=== PATIENT | female | born 1965 | race Hispanic/Latino ===

== ENCOUNTER 2019-02-02 20:25 | Emergency (ER) | payer SELFPAY ==
[2019-02-02 20:43] LABS: Bilirubin Negative (Negative); Blood, Urine Trace (Negative); Clarity CLOUDY (Clear); Glucose, Urine (Dipstick) Negative (Negative); Leukocyte Large (Negative); Nitrite Negative (Negative); Protein, Urine (Dipstick) 300 mg/dL (Neg-Trace); Specific Gravity, Urine 1.018 (1.002-1.036); Urobilinogen 0.2 mg/dL (0.2-1.0)
[2019-02-02 20:44] LABS: Bacteria/HPF 2+ HPF (None Seen); Pathc Cast-AUWi Flag 1.08 (0-2.49)
[2019-02-02 20:45] LABS: Hyaline Casts/LPF 0-3 HYALINE CAST LPF (0-3 Hyaline)
[2019-02-02] MEDS ORDERED: Ondansetron PF 4 MG/2 ML Vial ONE (21:21)
[2019-02-02] MEDS ORDERED: Ketorolac Tromethamine 30 MG/ML VIAL ONE (21:21)
[2019-02-02] MEDS ORDERED: cefTRIAXone\\ROCEPHIN 2 GM VIAL ONE (21:21)
[2019-02-02 21:30] LABS: #Basophils 0.1 thou/uL (0.0-0.2); #Eosinphils 0.2 thou/uL (0.0-0.7); #Lymphocytes 2.4 thou/uL (1.20-3.40); #Monocytes 0.6 thou/uL (0.11-0.59); %Eosinophils 2.5 % (0.0-10.0); %Lymphocytes 25.6 % (21.0-51.0); %Monocytes 6.2 % (0.0-10.0); %Neutrophils 64.7 % (42.0-75.0); Hemoglobin 12.4 g/dL (12.0-16.0); Mean Corpuscular HGB CONC 33.2 g/dL (32.0-36.0); Mean Corpuscular Volume 90.3 fL (78.0-98.0); Mean Platelet Volume 11.3 fL (7.4-10.4); Platelet Count 184 thou/uL (130-400); RBC Distribution Width 12.7 % (11.5-14.5); Red Blood Cell (RBC) Count 4.14 mill/uL (4.20-5.40); White Blood Cell (WBC) Count 9.2 thou/uL (4.8-10.8)
[2019-02-02 21:53] LABS: ALT (SGPT) 16 U/L (8-55); AST (SGOT) 11 U/L (5-34); Albumin 4.3 g/dL (3.5-5.0); Alkaline Phosphatase 83 U/L (40-150); Anion Gap 15 mmol/L (10-20); BUN (Urea Nitrogen) 22 mg/dL (9.8-20.1); Bilirubin, Total 0.2 mg/dL (0.2-1.2); Calc. Creatinine Clearance 0 mL/min (70-130); Calcium 9.6 mg/dL (7.8-10.44); Carbon Dioxide 24 mmol/L (22-29); Chloride 100 mmol/L (98-107); Estimated GFR-MDRD 84; Globulin 2.9 g/dL (2.4-3.5); Glucose 154 mg/dL (70-105); Lipase 15 U/L (8-78); Protein, Total 7.2 g/dL (6.0-8.3); Sodium 135 mmol/L (136-145)
--- NOTE | 2019-02-02 21:54 | CT ---
CT abdomen noncontrast CT pelvis noncontrast: (Urolithiasis protocol) DATE: 02/02/2019 HISTORY: 53-year-old female with right lower quadrant abdominal pain and flank pain COMPARISON: None available TECHNIQUE: IV injection of iodinated contrast media: None Oral contrast media: None FINDINGS: Other than for urolithiasis, the lack of IV and oral contrast limits the evaluation. At the lateral basilar segment of the right lower lobe, there is a broad region of tree-in-bud nodula rity. No consolidation or pleural effusion. No pneumoperitoneum or ascites. There is a small amount of air in the nondependent portion of the urinary bladder. Borderline thicken ing of urinary bladder stern. Mild dilation of right renal collecting system. No calculus identified in the kidneys, ureters, or bl adder. No dilation of the ureters. Normal appendix. No colonic diverticulitis. Within the limitations of a noncontrast scan, no abnormality identified involving left kidney, abdomi nal aorta, adrenals, liver, or pancreatic head and body. Pancreatic tail indistinct, probably due to breathing motion artifact. IMPRESSION: 1) minimal or mild hydronephrosis without evidence of nephrolithiasis. 2) tree in bud nodularity in right lower lobe consistent with a nonspecific peribronchiolar pneumonit is. Uncertain whether subacute or acute..
== END 2019-02-02 22:42 | disposition home or self-care (01) ==
LOC: ERS 20:25
DX: N39.0 Urinary tract infection, site not specified (principal); I10 Essential (primary) hypertension; E78.5 Hyperlipidemia, unspecified; Z79.899 Other long term (current) drug therapy
CPT/HCPCS: 74176; 80053; 81003; 81015; 83690; 85025; 87077; 87086; 87186; 96365; 96375; J0696; J1885; J2405

== ENCOUNTER 2020-03-13 15:00 | Observation (INO) | payer OTHER, SELFPAY ==
[2020-03-13] MEDS ORDERED: Lorazepam 2 MG/ML VIAL ONE (15:30)
[2020-03-13 15:56] LABS: #Basophils 0.1 thou/uL (0.0-0.2); #Eosinphils 0.2 thou/uL (0.0-0.7); #Lymphocytes 1.6 thou/uL (1.20-3.40); #Monocytes 0.3 thou/uL (0.11-0.59); #Neutrophils 3.9 thou/uL (1.40-6.50); %Basophils 1.2 % (0.0-1.0); %Eosinophils 3.4 % (0.0-10.0); %Lymphocytes 26.3 % (21.0-51.0); %Monocytes 5.4 % (0.0-10.0); %Neutrophils 63.6 % (42.0-75.0); Hemoglobin 12.9 g/dL (12.0-16.0); Mean Corpuscular HGB CONC 34.7 g/dL (32.0-36.0); Mean Corpuscular Hemoglobin 31.4 pg (27.0-31.0); Mean Corpuscular Volume 90.6 fL (78.0-98.0); Mean Platelet Volume 12.3 fL (7.4-10.4); Platelet Count 172 thou/uL (130-400); RBC Distribution Width 13.3 % (11.5-14.5); Red Blood Cell (RBC) Count 4.12 mill/uL (4.20-5.40); White Blood Cell (WBC) Count 6.1 thou/uL (4.8-10.8)
[2020-03-13 16:00] LABS: BHCG - Serum Negative (NEGATIVE); Pregs Control Background? CLEAR/WHITE (CLR/WHITE); Pregs Control Bar Appear? YES (CONTROL BAR)
[2020-03-13 16:11] LABS: Large Platelets SLIGHT; MDiff Complete? YES; Platelet Morphology Comment Appears Adequate; Polychromasia SLIGHT = 2-3 cells (100X) (0-2/hpf)
[2020-03-13 16:16] LABS: ALT (SGPT) 11 U/L (8-55); AST (SGOT) 8 U/L (5-34); Albumin 3.5 g/dL (3.5-5.0); Alkaline Phosphatase 163 U/L (40-110); Anion Gap 11 mmol/L (10-20); BUN (Urea Nitrogen) 15 mg/dL (9.8-20.1); Bilirubin, Total 0.2 mg/dL (0.2-1.2); CK (CPK) 23 U/L (29-168); Calc. Creatinine Clearance 0 mL/min (70-130); Calcium 8.8 mg/dL (7.8-10.44); Carbon Dioxide 26 mmol/L (22-29); Chloride 98 mmol/L (98-107); Estimated GFR-MDRD 68; Potassium 4.4 mmol/L (3.5-5.1); Protein, Total 6.5 g/dL (6.0-8.3); Sodium 131 mmol/L (136-145)
[2020-03-13 16:17] LABS: Acetaminophen Less than 6.0 mcg/mL (10.0-30.0); Alcohol Less than 10 mg/dL (Less than 10); Salicylate Less than 8.0 mg/dL (15.0-30.0)
[2020-03-13 16:21] LABS: Glucose 624 mg/dL (70-105)
[2020-03-13] MEDS ORDERED: Potassium Chloride 20 MEQ TAB ONE (16:29)
[2020-03-13] MEDS ORDERED: Insulin Regular 300 UNITS/3 ML VIAL ONE (16:29)
[2020-03-13 16:32] LABS: Bacteria/HPF None Seen HPF (None Seen); Bilirubin Negative (Negative); Blood, Urine Negative (Negative); Clarity Turbid (Clear); Glucose, Urine (Dipstick) Greater than 1000 mg/dL (Negative); Ketone, Urine Negative (Negative); Leukocyte 75 Leu/uL (Negative); Nitrite Negative (Negative); Protein, Urine (Dipstick) 100 mg/dL (Neg-Trace); RBC/HPF 0-3 HPF (0-3); Specific Gravity, Urine 1.024 (1.002-1.036); Squamous Epithelial 0-3 HPF (0-3); Urobilinogen Normal mg/dL (Less than 2); WBC/HPF Greater than 50 HPF (0-3)
--- NOTE | 2020-03-13 16:34 | RAD ---
PORTABLE CHEST: 03/13/20 HISTORY: Dyspnea. COMPARISON: 10/14/17. FINDINGS: There is evidence of hazy infiltrate in the right lower lung. This could represent ground glass type infiltrate. The lung chen are otherwise clear. The heart and mediastinum unremarkable. IMPRESSION: Question of hazy nodular appearing infiltrate in the right lower lung field. Follow-up is recommended . POS: AGW
[2020-03-13 16:37] LABS: CKMB 0.9 ng/mL (0-6.6)
[2020-03-13 16:40] LABS: Amphetamine Not Detected (NotDetected); Barbiturates Screen Not Detected (NotDetected); Benzodiazepine Screen Not Detected (NotDetected); Cocaine Metabolite Screen Not Detected (NotDetected); Medtox Control Line Valid? VALID (VALID); Medtox Reader # READER 1; Methadone Not Detected (NotDetected); Methamphetamine Not Detected (NotDetected); Opiate Screen Not Detected (NotDetected); Oxycodone Screen Not Detected (NotDetected); Phencyclidine (PCP) Not Detected (NotDetected); THC/Cannabinoid Screen Not Detected (NotDetected); Tricyclic Screen Not Detected (NotDetected)
[2020-03-13] MEDS ORDERED: Metoprolol Tartrate 5 MG/5 ML VIAL ONE (16:50)
[2020-03-13] MEDS ORDERED: Nitroglycerin 2% Ointment 1 INCH/1 GM Packet ONE (16:50)
[2020-03-13] MEDS ORDERED: Aspirin Chewable 81 MG TAB ONE (16:50)
[2020-03-13 17:00] LABS: Lipase 32 U/L (8-78); Phosphorus 3.3 mg/dL (2.3-4.7)
[2020-03-13 17:16] LABS: Base Excess-Venous 1.9 mmol/L (-2.0 to 3.0); CO2 Tension (PvCO2) 49.2 mmHg (40.0-50.0); Calcium, Ionized 1.15 mmol/L (See Comments:); Chloride 103 mmol/L (98-107); Hemoglobin - Calc 12.4 g/dL (12.0-16.0); Potassium 3.7 mmol/L (3.5-5.1); Sodium 141 mmol/L (138-145); T. Carbon Dioxide 29.5 mmol/L (22.0-28.0); vO2 Saturation-calc 74.5 % (60.0-85.0)
[2020-03-13 18:40] LABS: SARS-CoV-2 NAA Rapid Test DETECTED (NotDetected)
[2020-03-13 19:21] LABS: Troponin I 0.098 ng/mL (< 0.028)
[2020-03-13] MEDS ORDERED: Dextrose 5% in Water 1,000 ML IV PRN (19:33)
[2020-03-13] MEDS ORDERED: Dextrose 50% Abboject 50 ML SYRINGE SLOW IVP PRN (19:33)
[2020-03-13] MEDS ORDERED: Acetaminophen 325 MG TAB PO PRN (19:35)
[2020-03-13] MEDS ORDERED: Senokot S 8.6-50 MG TAB PO PRN (19:35)
[2020-03-13] MEDS ORDERED: Insulin Glargine 30 UNITS in Pre-Filled Syringe 1 EACH SC SCH (19:45)
[2020-03-13] MEDS: Gabapentin 300 MG CAP PO SCH (21:01)
[2020-03-13] MEDS ORDERED: hydrALAZINE 20 MG/ML VIAL SLOW IVP PRN (22:11)
[2020-03-13] MEDS: Sodium Chloride 0.9% 1,000 ML IV SCH (23:00)
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
[2020-03-13] MEDS: Famotidine 20 MG TAB PO SCH (23:58)
[2020-03-13] MEDS: cloNIDine 0.1 MG TAB PO PRN (23:58)
[2020-03-13] MEDS: Atorvastatin Calcium 20 MG TAB PO SCH (23:59)
[2020-03-14 05:30] LABS: Hemoglobin A1c Greater than 14.0 % (4.0-6.0)
[2020-03-14] MEDS: Nitroglycerin 2% Ointment 1 INCH/1 GM Packet TOP SCH ×2 (05:32→17:04)
[2020-03-14 05:40] LABS: #Basophils 0.1 thou/uL (0.0-0.2); #Eosinphils 0.2 thou/uL (0.0-0.7); #Lymphocytes 1.7 thou/uL (1.20-3.40); #Monocytes 0.2 thou/uL (0.11-0.59); #Neutrophils 2.4 thou/uL (1.40-6.50); %Basophils 1.7 % (0.0-1.0); %Eosinophils 5.2 % (0.0-10.0); %Lymphocytes 37.3 % (21.0-51.0); %Monocytes 4.8 % (0.0-10.0); %Neutrophils 51.1 % (42.0-75.0); Hemoglobin 11.3 g/dL (12.0-16.0); Mean Corpuscular HGB CONC 33.2 g/dL (32.0-36.0); Mean Corpuscular Hemoglobin 30.6 pg (27.0-31.0); Mean Corpuscular Volume 92.2 fL (78.0-98.0); Mean Platelet Volume 11.8 fL (7.4-10.4); Platelet Count 152 thou/uL (130-400); RBC Distribution Width 13.3 % (11.5-14.5); Red Blood Cell (RBC) Count 3.68 mill/uL (4.20-5.40); White Blood Cell (WBC) Count 4.6 thou/uL (4.8-10.8)
[2020-03-14 05:46] LABS: ALT (SGPT) 9 U/L (8-55); AST (SGOT) 6 U/L (5-34); Alkaline Phosphatase 109 U/L (40-110); Anion Gap 9 mmol/L (10-20); BUN (Urea Nitrogen) 15 mg/dL (9.8-20.1); Bilirubin, Total 0.2 mg/dL (0.2-1.2); Calc. Creatinine Clearance 119 mL/min (70-130); Calcium 8.2 mg/dL (7.8-10.44); Carbon Dioxide 25 mmol/L (22-29); Cardiac Risk 7.6 (Less than 4.5); Chloride 105 mmol/L (98-107); Cholesterol 213 mg/dl (< 200 Desired); Estimated GFR-MDRD 88; Globulin 2.3 g/dL (2.4-3.5); Glucose 332 mg/dL (70-105); HDL Cholesterol 28 mg/dL (>60 Neg Risk); LDL Cholesterol, Calculated 105 mg/dL; Potassium 4.3 mmol/L (3.5-5.1); Protein, Total 5.3 g/dL (6.0-8.3); Sodium 135 mmol/L (136-145); Triglycerides 398 mg/dL (Less than 150)
[2020-03-14] MEDS: HumaLOG 300 UNITS/3 ML VIAL SC PRN ×3 (05:52→21:16)
[2020-03-14] MEDS: Sodium Chloride 0.9% 1,000 ML IV SCH (06:31)
[2020-03-14] MEDS: Gabapentin 300 MG CAP PO SCH ×2 (08:58→21:08)
[2020-03-14] MEDS: Enoxaparin Sodium 40 MG/0.4 ML SYRINGE SC SCH (08:58)
[2020-03-14] MEDS: cloNIDine 0.1 MG TAB PO PRN (09:59)
[2020-03-14] MEDS: Insulin Glargine 15 UNITS in Pre-Filled Syringe 1 EACH SC SCH ×2 (10:00→21:07)
[2020-03-14] MEDS: Famotidine 20 MG TAB PO SCH ×2 (10:00→21:08)
[2020-03-14] MEDS ORDERED: Cipro 250 MG TAB PO SCH (14:00)
[2020-03-14] MEDS ORDERED: Polyethylene Glycol 3350 17 GM Packet PO PRN (17:27)
[2020-03-14] MEDS ORDERED: Acetaminophen 500 MG TAB PO PRN (17:28)
--- NOTE | 2020-03-14 17:33 | PDOC.HOSPP ---
- Subjective Subjective: Patient seen and examined. Patient's registered nurse at bedside throughout my evaluation. A senior water/wastewater engineer was used via remote video monitoring screen. The patient states that she has had episodes of chest discomfort in the past when she has panic attacks. Patient currently is feeling much better and denies chest pain. Patient's panic attack has resolved. Patient has had these episodes in the past where she gets very upset to her family members, panic attack ensues , and mild chest discomfort comes. Patient's blood pressure is also severely elevated. Patient does endorse medical noncompliance with diabetes regimen. Her diabetes regimen has been adjusted here. I have adjusted her blood pressure regimen. Patient does have Covid from last month, though currently she states that she is asymptomatic. Patient breathing comfortably on room air. Patient without cough or fever. Patient with mildly elevated cardiac enzymes from uncontrolled blood pressure. We will ask for cardiology input for next step in management. A nuclear medicine stress test would be considered, though with Covid this may be difficult/not possible. - Objective Vital Signs & Weight: Vital Signs (12 hours) Temp Pulse Resp BP Pulse Ox 03/14/20 11:30 96.4 F L 64 14 189/84 H 92 L 03/14/20 07:38 97.6 F 74 13 197/88 H 98 Weight Weight 176 lb 3.2 oz I&O: 03/13/20 03/14/20 03/15/20 06:59 06:59 06:59 Intake Total 1220 220 Output Total 700 Balance 520 220 Result Diagrams: 03/14/20 05:04 03/14/20 05:04 Radiology Reviewed by me: Yes Hospitalist ROS - Review of Systems All other systems reviewed; all pertinent +/- noted in HPI/Subj - Medication Medications: Active Medications Generic Name Dose Route Start Last Admin Trade Name Freq PRN Reason Stop Dose Admin Atorvastatin Calcium 20 mg 03/13/20 21:00 03/13/20 23:59 Lipitor PO 20 mg HS JEANNINE Administration Clonidine 0.1 mg 03/13/20 22:11 03/14/20 09:59 Catapres PO 0.1 mg Q4H PRN Administration SBP > 180 Enoxaparin Sodium 40 mg 03/14/20 09:00 03/14/20 08:58 Lovenox SC 40 mg 0900 JEANNINE Administration Famotidine 20 mg 03/13/20 21:00 03/14/20 10:00 Pepcid PO 20 mg BID JEANNINE Administration Gabapentin 300 mg 03/13/20 21:00 03/14/20 08:58 Neurontin PO 300 mg BID JEANNINE Administration Insulin Glargine 15 units/ 0.15 mls @ 0 mls/hr 03/14/20 09:00 03/14/20 10:00 Miscellaneous Medication SC 0.15 mls BID JEANNINE Administration As Directed Insulin Human Lispro 0 units 03/13/20 19:33 03/14/20 17:04 Humalog SC 8 unit .MODERATE SLIDING SC PRN Administration Moderate Correctional Scale Nitroglycerin 1 inch 03/14/20 06:00 03/14/20 17:04 Nitro-Bid 2% Ointment TOP 1 inch 0600,1800 JEANNINE Administration - Exam General Appearance: NAD, awake alert Eye: anicteric sclera ENT: normocephalic atraumatic, moist mucosa Neck: supple, symmetric, no lymphadenopathy Heart: no murmur, no gallops, no rubs, normal peripheral pulses Respiratory: CTAB, no wheezes, no rales, no ronchi Gastrointestinal: soft, non-tender, non-distended, no guarding, no rigidity Extremities: 1+ LE edema Skin: no rashes Neurological: cranial nerve grossly intact, no focal deficits Musculoskeletal: normal strength Psychiatric: A&O x 3 Hosp A/P (1) Hypertensive emergency Code(s): I16.1 - HYPERTENSIVE EMERGENCY Status: Acute (2) Atypical chest pain Code(s): R07.89 - OTHER CHEST PAIN Status: Acute (3) Diabetes mellitus type 2, uncontrolled, with complications Code(s): E11.8 - TYPE 2 DIABETES MELLITUS WITH UNSPECIFIED COMPLICATIONS; E11.65 - TYPE 2 DIABETES MELLITUS WITH HYPERGLYCEMIA Status: Acute (4) Diabetic neuropathy associated with type 2 diabetes mellitus Code(s): E11.40 - TYPE 2 DIABETES MELLITUS WITH DIABETIC NEUROPATHY, UNSP Status: Acute Qualifiers: Diabetes mellitus complication detail: diabetic polyneuropathy Qualified Code(s): E11.42 - Type 2 diabetes mellitus with diabetic polyneuropathy (5) GERD (gastroesophageal reflux disease) Code(s): K21.9 - GASTRO-ESOPHAGEAL REFLUX DISEASE WITHOUT ESOPHAGITIS Status: Acute - Plan Plan: Medical unit with telemetry cardiology consultation, recommendations appreciated continuous telemetry to monitor for arrhythmia atypical chest pain elevated cardiac enzyme may be secondary to hypertension would consider nuclear medicine stress testing however with Covid this may be difficult/not possible adjust blood pressure medications long and short acting insulin for glucose control urinary tract infection with E. coli, ciprofloxacin started continue other home medications as able blood pressure control blood sugar control G.I. prophylaxis DVT prophylaxis
[2020-03-14] MEDS: Cipro 250 MG TAB PO SCH (21:09)
[2020-03-14] MEDS: Atorvastatin Calcium 20 MG TAB PO SCH (21:09)
[2020-03-14] MEDS: Lisinopril 5 MG TAB PO SCH (21:09)
[2020-03-15] MEDS: Cipro 250 MG TAB PO SCH (05:46)
[2020-03-15] MEDS: HumaLOG 300 UNITS/3 ML VIAL SC PRN ×3 (05:51→21:19)
[2020-03-15] MEDS: Nitroglycerin 2% Ointment 1 INCH/1 GM Packet TOP SCH (05:53)
[2020-03-15] MEDS ORDERED: Glimepiride 4 MG TAB PO SCH (08:00)
[2020-03-15] MEDS: Enoxaparin Sodium 40 MG/0.4 ML SYRINGE SC SCH (08:26)
[2020-03-15] MEDS: Amlodipine 5 MG TAB PO SCH (08:26)
[2020-03-15] MEDS: metFORMIN 500 MG TAB PO SCH ×2 (08:26→17:13)
[2020-03-15] MEDS: Gabapentin 300 MG CAP PO SCH ×2 (08:26→21:07)
[2020-03-15] MEDS: Insulin Glargine 15 UNITS in Pre-Filled Syringe 1 EACH SC SCH ×2 (08:27→21:07)
[2020-03-15] MEDS: Lisinopril 5 MG TAB PO SCH ×2 (08:31→21:07)
[2020-03-15] MEDS: Famotidine 20 MG TAB PO SCH ×2 (08:41→21:10)
[2020-03-15] MEDS: cloNIDine 0.1 MG TAB PO PRN (12:04)
[2020-03-15 12:50] VITALS: BMI 32.2
[2020-03-15] MEDS ORDERED: Regadenoson 0.4 MG/5 ML SYRINGE ONE (13:14)
[2020-03-15] MEDS: Nitrofurantoin Macrocrystal 50 MG CAP PO SCH ×3 (13:53→21:07)
--- NOTE | 2020-03-15 15:22 | PDOC.HOSPP ---
- Subjective Subjective: Patient seen and examined. Significant efforts were made by myself, Dr. Puga, and cardiology Dr. Tamayo in determining the next plan of care for this patient. It was determined that a negative covert test from 02/14/2020 and being asymptomatic since then and afebrile she would best be stratified with a nuclear medicine stress test. The patient is complaining of more pain in her feet, this may be diabetic neuropathy. Once she is stable we can look towards gabapentin. Patient slept well with Seroquel. We will need a mental health evaluation after stress test is completed. - Objective Vital Signs & Weight: Vital Signs (12 hours) Temp Pulse Resp BP BP Pulse Ox 03/15/20 13:55 162/76 H 03/15/20 12:05 97.9 F 75 24 H 183/86 H 97 03/15/20 08:44 98.1 F 70 13 180/78 H 98 03/15/20 04:20 98 F 65 18 127/60 97 Weight Admit Weight 176 lb 3.2 oz Weight 176 lb 3.2 oz I&O: 03/14/20 03/15/20 03/16/20 06:59 06:59 06:59 Intake Total 1220 340 Output Total 700 Balance 520 340 Result Diagrams: 03/14/20 05:04 03/14/20 05:04 Additional Labs: Accuchecks 03/15/20 03/15/20 11:17 05:52 POC Glucose 254 H 297 H Radiology Reviewed by me: Yes Hospitalist ROS - Review of Systems All other systems reviewed; all pertinent +/- noted in HPI/Subj - Medication Medications: Active Medications Generic Name Dose Route Start Last Admin Trade Name Freq PRN Reason Stop Dose Admin Acetaminophen 650 mg 03/13/20 19:35 03/15/20 12:04 Tylenol PO 650 mg Q4H PRN Administration Headache/Fever/Mild Pain (1-3) Amlodipine Besylate 5 mg 03/15/20 09:00 03/15/20 08:26 Norvasc PO 5 mg DAILY JEANNINE Administration Atorvastatin Calcium 20 mg 03/13/20 21:00 03/14/20 21:09 Lipitor PO 20 mg HS JEANNINE Administration Clonidine 0.1 mg 03/13/20 22:11 03/15/20 12:04 Catapres PO 0.1 mg Q4H PRN Administration SBP > 180 Enoxaparin Sodium 40 mg 03/14/20 09:00 03/15/20 08:26 Lovenox SC 40 mg 0900 JEANNINE Administration Famotidine 20 mg 03/13/20 21:00 03/15/20 08:41 Pepcid PO 20 mg BID JEANNINE Administration Gabapentin 300 mg 03/13/20 21:00 03/15/20 08:26 Neurontin PO 300 mg BID JEANNINE Administration Insulin Glargine 15 units/ 0.15 mls @ 0 mls/hr 03/14/20 09:00 03/15/20 08:27 Miscellaneous Medication SC 0.15 mls BID JEANNINE Administration As Directed Insulin Human Lispro 0 units 03/13/20 19:33 03/15/20 05:51 Humalog SC 6 unit .MODERATE SLIDING SC PRN Administration Moderate Correctional Scale Insulin Human Lispro 0 units 03/13/20 19:33 03/14/20 21:16 Humalog SC 4 unit .BEDTIME SLIDING SC PRN Administration Bedtime Correctional Scale Lisinopril 5 mg 03/14/20 21:00 03/15/20 08:31 Zestril PO 5 mg BID JEANNINE Administration Metformin HCl 1,000 mg 03/15/20 08:00 03/15/20 08:26 Glucophage PO 1,000 mg BID-WM JEANNINE Administration Nitrofurantoin Macrocrystals 100 mg 03/15/20 13:00 03/15/20 13:53 Macrodantin PO 100 mg QID JEANNINE Administration Nitroglycerin 1 inch 03/14/20 06:00 03/15/20 05:53 Nitro-Bid 2% Ointment TOP Not Given 0600,1800 JEANNINE Polyethylene Glycol 17 gm 03/14/20 17:27 03/14/20 18:16 Miralax PO 17 gm DAILYPRN PRN Administration Constipation Quetiapine Fumarate 25 mg 03/14/20 21:00 03/14/20 21:09 Seroquel PO 25 mg HS JEANNINE Administration - Exam General Appearance: NAD, awake alert Eye: PERRL ENT: normocephalic atraumatic, moist mucosa Neck: supple, no JVD Heart: no murmur, no rubs Respiratory: CTAB, no wheezes, no rales, no ronchi, normal chest expansion Gastrointestinal: soft, non-tender, no guarding, no rigidity Extremities: no edema Skin: no lesions, no rashes Neurological: cranial nerve grossly intact, no focal deficits Musculoskeletal: generalized weakness Psychiatric: A&O x 3 Hosp A/P (1) Hypertensive emergency Code(s): I16.1 - HYPERTENSIVE EMERGENCY Status: Acute (2) Atypical chest pain Code(s): R07.89 - OTHER CHEST PAIN Status: Acute (3) Diabetes mellitus type 2, uncontrolled, with complications Code(s): E11.8 - TYPE 2 DIABETES MELLITUS WITH UNSPECIFIED COMPLICATIONS; E11.65 - TYPE 2 DIABETES MELLITUS WITH HYPERGLYCEMIA Status: Acute (4) Diabetic neuropathy associated with type 2 diabetes mellitus Code(s): E11.40 - TYPE 2 DIABETES MELLITUS WITH DIABETIC NEUROPATHY, UNSP Status: Acute Qualifiers: Diabetes mellitus complication detail: diabetic polyneuropathy Qualified Code(s): E11.42 - Type 2 diabetes mellitus with diabetic polyneuropathy (5) GERD (gastroesophageal reflux disease) Code(s): K21.9 - GASTRO-ESOPHAGEAL REFLUX DISEASE WITHOUT ESOPHAGITIS Status: Acute - Plan Plan: Medical unit with telemetry cardiology consultation, recommendations appreciated nuclear medicine stress OK'd by Dr Puga and Dr Tamayo, if negative will be cleared for mental health evaluation continuous telemetry to monitor for arrhythmia atypical chest pain elevated cardiac enzyme may be secondary to hypertension adjust blood pressure medications long and short acting insulin for glucose control urinary tract infection with E. coli, resistant to ciprofloxacin -> changed to Nitrofurantoin continue other home medications as able blood pressure control blood sugar control G.I. prophylaxis DVT prophylaxis
--- NOTE | 2020-03-15 17:09 | NM ---
NUCLEAR MEDICINE CARDIAC MYOCARDIAL PERFUSION SPECT EJECTION FRACTION STUDY WALL MOTION CINE: DATE: 03/15/2020 HISTORY: 54-year-old female with hypertension, diabetes mellitus, and dyslipidemia, presents with chest pain. TECHNIQUE: Number of days: 1 Rest study: Not performed Pharmacologic stress: Lexiscan dose: 0.4 mg Stress study: Technetium 99m-sestamibi (Cardiolite) dose: 28.2 mCi FINDINGS: CARDIAC (MYOCARDIAL PERFUSION) SPECT Distribution of sestamibi is homogeneous throughout the left ventricle, with no myocardial perfusion defects. EJECTION FRACTION STUDY Left ventricular EF = 49 % WALL MOTION CINE The left ventricular wall motion is normal. There is normal systolic wall thickening. IMPRESSION: 1. Left ventricular ejection fraction 49%. 2. Otherwise negative. 3. No evidence of myocardial ischemia or infarction.
[2020-03-15] MEDS: Atorvastatin Calcium 20 MG TAB PO SCH (21:07)
[2020-03-16] MEDS: HumaLOG 300 UNITS/3 ML VIAL SC PRN ×2 (06:05→11:55)
[2020-03-16] MEDS: Enoxaparin Sodium 40 MG/0.4 ML SYRINGE SC SCH (10:15)
[2020-03-16] MEDS: Amlodipine 5 MG TAB PO SCH (10:15)
[2020-03-16] MEDS: metFORMIN 500 MG TAB PO SCH ×2 (10:15→16:21)
[2020-03-16] MEDS: Famotidine 20 MG TAB PO SCH (10:16)
[2020-03-16] MEDS: Gabapentin 300 MG CAP PO SCH (10:16)
[2020-03-16] MEDS: Lisinopril 5 MG TAB PO SCH (10:16)
[2020-03-16] MEDS: Nitrofurantoin Macrocrystal 50 MG CAP PO SCH ×3 (10:16→16:20)
[2020-03-16] MEDS: Insulin Glargine 15 UNITS in Pre-Filled Syringe 1 EACH SC SCH (10:16)
[2020-03-16] MEDS: cloNIDine 0.1 MG TAB PO PRN ×2 (11:54→13:07)
[2020-03-16 15:35] VITALS: BP 142/72; TEMP 98.5
--- NOTE | 2020-03-17 07:00 | DIS ---
DATE OF ADMISSION: 03/13/2020 DATE OF DISCHARGE: 03/16/2020 REASON FOR HOSPITALIZATION: Chest pain. PROCEDURES PERFORMED AND TREATMENTS RENDERED: Ms. Arias is a pleasant 54-year-old female, who presented to [facility] on 03/13/2020, with multiple complaints. Most significantly, the patient was complaining of chest discomfort after an argument with her daughter. For this, the patient was recommended for nuclear medicine stress testing. This was complicated by the fact that the patient has been exposed to COVID-19 in the past. After conferencing with hospital administration, Dr. Gale Puga and Cardiology, Dr. Tamayo and coordinating with the lab as to the timing of when the patient was initially diagnosed with COVID-19, it was determined that COVID-19 exposure was confirmed on 02/14/2020, roughly one month ago. The patient has not been having any symptoms. No fever, no cough, no shortness of breath or any symptoms of COVID-19 for the past 3+ weeks. Because of this information, the patient was recommended safe to proceed with stress test, please see full report for details, no reversible ischemia was identified. The patient's other complaints including urinary tract infection, for which I wrote her nitrofurantoin, this medication will be continued in the outpatient setting. Also, it was documented that at some point, the patient had suicidal thoughts and a mental health assessment was performed. Throughout the patient's hospitalization when I discussed with her, she had no active thoughts of hurting herself or hurting anyone else. The patient does have some issues with depression and panic attacks and feelings of worthlessness and she has thought in the past almost one month ago that maybe it would be more convenient for her family if she was and she would not be a burden on them. The patient states that she has no ideations or plans to kill or hurt herself or anyone else at this time. Mobile health assessment agreeing that the patient is not a threat or danger to herself or others and she would best be served by followup with Psychiatry in the outpatient setting, efforts were made to get the patient an outpatient psychiatric appointment prior to discharge. I consulted with Case Management and the [facility] as to ways to get this patient medications at no cost to her to ensure medical compliance. I have sent her prescriptions to her preferred pharmacy and [facility] these [facility]. I have started the patient on Seroquel on admission with 25 mg at bedtime, up titrated to 50 mg p.o. at bedtime. The patient has had a good response to this and she has been calm without episodes of panic attack. This has also aided the patient in sleep. The patient was recommended safe for discharge with close followup with primary care physician and Psychiatry in the upcoming weeks. CONDITION ON DISCHARGE: Stable. SPECIFIC INSTRUCTIONS FOR THE PATIENT/FAMILY: 1. The patient recommended to take all medications as directed. 2. The patient recommended to follow up with primary care physician in the next 5 to 7 days. 3. The patient recommended to follow up with Psychiatry in the next 3 to 4 weeks. 4. The patient recommended to comply with all of the previously mentioned steps or return to acute care hospital immediately for re-evaluation. 5. The patient recommended to return to acute care hospital immediately if signs or symptoms return, worsen, or any other new symptoms occur. DISCHARGE MEDICATIONS: Please see full discharge medication reconciliation for details. TIME SPENT: Greater than 42 minutes spent coordinating care and discharge process for this patient. Job ID: [id number]
--- NOTE | 2020-03-31 08:21 | STRESS ---
Acquisition Time: 2020-03-15 15:44:48 Total Exercise Time: 00:01:00 Test Indications: CHEST PAIN Medications: Protocol: LEXISCAN Max HR: 082 BPM 48% of Pred: 168 BPM Max BP: 124/072 mmHG Max Work Load: 1.0 METS RESTING ECG: NORMAL SINUS RHYTHM AT 68 BPM WITH LEFT ANTERIOR FASCICULAR BLOCK SYMPTOMS: NONE NORMAL BP RESPONSE ECTOPY: NONE ECG STRESS: NO SIGNIFICANT CHANGES INTERPRETATION: NEGATIVE ECG/AWAIT NUCLEAR IMAGES FOR DEFINITIVE DIAGNOSIS Confirmed by GEORGE GEORGES ELLEN ([id number]) on 03/31/2020 8:20:42 AM Referred By: MD Mikayla RUDOLPH Confirmed By:PIPPA GEORGES PA-C
--- NOTE | 2020-04-10 11:23 | EKG ---
Test Reason : Blood Pressure : / mmHG Vent. Rate : 090 BPM Atrial Rate : 090 BPM P-R Int : 142 ms QRS Dur : 086 ms QT Int : 386 ms P-R-T Axes : 044 -48 042 degrees QTc Int : 472 ms Normal sinus rhythm Left anterior fascicular block Abnormal ECG Confirmed by GUANAKITO RAMIREZ, EJ ([id number]), editorial project manager CHETNA PERALTA ([id number]) on 04/10/2020 11:23:24 AM Referred By: Confirmed By:EJ CALABRESE MD
== END 2020-03-16 17:20 | disposition home or self-care (01) ==
LOC: ERS 15:00 → ERHOLD 16:56 → 2SW 22:52
PROVIDERS: ADMIT Internal Medicine; ATTEND Internal Medicine
DX: I16.1 Hypertensive emergency (principal); R07.89 Other chest pain; U07.1 COVID-19; F41.0 Panic disorder [episodic paroxysmal anxiety]; R45.851 Suicidal ideations; F32.9 Major depressive disorder, single episode, unspecified; H54.7 Unspecified visual loss; E78.5 Hyperlipidemia, unspecified; E78.00 Pure hypercholesterolemia, unspecified; I10 Essential (primary) hypertension; E11.65 Type 2 diabetes mellitus with hyperglycemia; E11.42 Type 2 diabetes mellitus with diabetic polyneuropathy; K59.09 Other constipation; F41.9 Anxiety disorder, unspecified; K21.9 Gastro-esophageal reflux disease without esophagitis; Z79.84 Long term (current) use of oral hypoglycemic drugs; Z79.899 Other long term (current) drug therapy; Z91.5 Personal history of self-harm; Z20.828 Contact with and (suspected) exposure to other viral communicable diseases
CPT/HCPCS: 36415; 36416; 71045; 78452; 80053; 80061; 80306; 80307; 81003; 81015; 82010; 82330; 82550; 82553; 82803; 83036; 83690; 83735; 83880; 84100; 84443; 84484; 84703; 85025; 85379; 87077; 87086; 87186; 93005; 93017; 96361; 96372; 96374; 96375; A9500; G0378; J1650; J1815; J2060; J2785; U0002

== ENCOUNTER 2021-01-05 12:33 | Emergency (ER) | payer SELFPAY ==
[2021-01-05] MEDS ORDERED: Lisinopril 10 MG TAB ONE (13:38)
[2021-01-05] MEDS ORDERED: Ibuprofen 800 MG TAB ONE (13:38)
[2021-01-05 13:50] LABS: Bacteria/HPF 4+ HPF (None Seen); Bilirubin Negative (Negative); Blood, Urine 1+ (Negative); Clarity Clear (Clear); Glucose, Urine (Dipstick) Greater than 1000 mg/dL (Negative); Ketone, Urine 10 mg/dL (Negative); Leukocyte 75 Leu/uL (Negative); Nitrite 2+ (Negative); Protein, Urine (Dipstick) 300 mg/dL (Neg-Trace); Specific Gravity, Urine 1.029 (1.002-1.036); Squamous Epithelial None Seen HPF (0-3); Urobilinogen Normal mg/dL (Less than 2); WBC/HPF Greater than 50 HPF (0-3)
== END 2021-01-05 14:56 | disposition home or self-care (01) ==
LOC: ERS 12:33
DX: N30.00 Acute cystitis without hematuria (principal); I10 Essential (primary) hypertension; E78.5 Hyperlipidemia, unspecified; E78.00 Pure hypercholesterolemia, unspecified; E11.9 Type 2 diabetes mellitus without complications; Z79.84 Long term (current) use of oral hypoglycemic drugs; Z79.899 Other long term (current) drug therapy
CPT/HCPCS: 81003; 81015; 87077; 87086; 87186; 99283

== ENCOUNTER 2021-06-21 01:03 | Inpatient (IN) | payer MEDICAID, SELFPAY ==
[2021-06-21] MEDS ORDERED: cloNIDine 0.1 MG TAB ONE (01:39)
[2021-06-21 01:49] LABS: #Basophils 0.1 thou/uL (0.0-0.2); #Eosinphils 0.1 thou/uL (0.0-0.7); #Lymphocytes 1.5 thou/uL (1.20-3.40); #Monocytes 0.7 thou/uL (0.11-0.59); #Neutrophils 3.6 thou/uL (1.40-6.50); %Basophils 0.9 % (0.0-1.0); %Eosinophils 2.3 % (0.0-10.0); %Lymphocytes 25.2 % (21.0-51.0); %Monocytes 11.4 % (0.0-10.0); %Neutrophils 60.2 % (42.0-75.0); Hemoglobin 12.1 g/dL (12.0-16.0); Mean Corpuscular HGB CONC 33.9 g/dL (32.0-36.0); Mean Corpuscular Hemoglobin 31.1 pg (27.0-31.0); Mean Corpuscular Volume 91.8 fL (78.0-98.0); Platelet Count 222 thou/uL (130-400); RBC Distribution Width 13.3 % (11.5-14.5); Red Blood Cell (RBC) Count 3.89 mill/uL (4.20-5.40); White Blood Cell (WBC) Count 5.9 thou/uL (4.8-10.8)
[2021-06-21 02:09] LABS: ALT (SGPT) 16 U/L (8-55); AST (SGOT) 12 U/L (5-34); Albumin 3.5 g/dL (3.5-5.0); Alkaline Phosphatase 118 U/L (40-110); Anion Gap 11 mmol/L (10-20); BUN (Urea Nitrogen) 16 mg/dL (9.8-20.1); Bilirubin, Total 0.4 mg/dL (0.2-1.2); Calc. Creatinine Clearance 0 mL/min (70-130); Calcium 9.2 mg/dL (7.8-10.44); Carbon Dioxide 29 mmol/L (22-29); Chloride 105 mmol/L (98-107); Globulin 2.7 g/dL (2.4-3.5); Glucose 145 mg/dL (70-105); Potassium 4.4 mmol/L (3.5-5.1); Protein, Total 6.2 g/dL (6.0-8.3); Sodium 141 mmol/L (136-145)
[2021-06-21 02:32] LABS: CKMB 1.1 ng/mL (0-6.6)
[2021-06-21] MEDS ORDERED: Aspirin Chewable 81 MG TAB ONE (02:57)
[2021-06-21] MEDS ORDERED: Ondansetron PF 4 MG/2 ML Vial ONE (03:07)
[2021-06-21] MEDS ORDERED: Meclizine HCl 25 MG TAB PO SCH (03:15)
[2021-06-21] MEDS ORDERED: Ondansetron ODT 4 MG TAB PO PRN (04:33)
[2021-06-21] MEDS ORDERED: Ondansetron PF 4 MG/2 ML Vial IVP PRN (04:33)
[2021-06-21] MEDS ORDERED: Acetaminophen 650 MG Suppository PR PRN (04:33)
[2021-06-21] MEDS ORDERED: Dextrose 50% Abboject 50 ML SYRINGE SLOW IVP PRN (04:37)
[2021-06-21] MEDS ORDERED: Dextrose 5% in Water 1,000 ML IV PRN (04:37)
[2021-06-21] MEDS ORDERED: HumaLOG 300 UNITS/3 ML VIAL SC PRN (04:37)
[2021-06-21 05:05] LABS: Troponin I 0.143 ng/mL (< 0.028)
[2021-06-21 05:39] VITALS: BMI 31.0
[2021-06-21] MEDS: Meclizine HCl 25 MG TAB PO SCH ×3 (05:59→21:06)
[2021-06-21 08:25] LABS: Troponin I 0.146 ng/mL (< 0.028)
[2021-06-21] MEDS: Aspirin 81 mg Enteric Coated Tablet PO SCH (08:52)
[2021-06-21] MEDS: Enoxaparin Sodium 40 MG/0.4 ML SYRINGE SC SCH (08:52)
[2021-06-21] MEDS ORDERED: Prevnar 13-Val Conj/PF 0.5 ML SYRINGE IM ONE (09:00)
[2021-06-21] MEDS: HumaLOG 300 UNITS/3 ML VIAL SC PRN ×2 (11:20→18:41)
[2021-06-21 11:53] LABS: SARS-CoV-2 PCR by NAA Not Detected (NotDetected)
[2021-06-21] MEDS: Atorvastatin Calcium 20 MG TAB PO SCH (21:06)
[2021-06-21] MEDS: metFORMIN 500 MG TAB PO SCH (21:06)
[2021-06-22 04:49] LABS: Bacteria/HPF None Seen HPF (None Seen); Bilirubin Negative (Negative); Blood, Urine Negative (Negative); Clarity Clear (Clear); Glucose, Urine (Dipstick) 100 mg/dL (Negative); Ketone, Urine Negative (Negative); Leukocyte Negative Leu/uL (Negative); Nitrite Negative (Negative); Protein, Urine (Dipstick) 300 mg/dL (Neg-Trace); RBC/HPF 0-3 HPF (0-3); Specific Gravity, Urine 1.017 (1.002-1.036); Squamous Epithelial 0-3 HPF (0-3); Urobilinogen Normal mg/dL (Less than 2); WBC/HPF 0-3 HPF (0-3)
[2021-06-22 04:51] LABS: Urine Culture Reflex No No
[2021-06-22 05:49] LABS: #Eosinphils 0.1 thou/uL (0.0-0.7); #Lymphocytes 1.3 thou/uL (1.20-3.40); #Monocytes 0.7 thou/uL (0.11-0.59); #Neutrophils 2.8 thou/uL (1.40-6.50); %Basophils 0.3 % (0.0-1.0); %Eosinophils 2.4 % (0.0-10.0); %Monocytes 13.5 % (0.0-10.0); %Neutrophils 56.8 % (42.0-75.0); Hemoglobin 11.3 g/dL (12.0-16.0); Mean Corpuscular HGB CONC 32.8 g/dL (32.0-36.0); Mean Corpuscular Hemoglobin 30.7 pg (27.0-31.0); Mean Corpuscular Volume 93.7 fL (78.0-98.0); Mean Platelet Volume 11.3 fL (7.4-10.4); Platelet Count 205 thou/uL (130-400); RBC Distribution Width 13.1 % (11.5-14.5); Red Blood Cell (RBC) Count 3.68 mill/uL (4.20-5.40); White Blood Cell (WBC) Count 4.9 thou/uL (4.8-10.8)
[2021-06-22 06:08] LABS: Anion Gap 12 mmol/L (10-20); BUN (Urea Nitrogen) 19 mg/dL (9.8-20.1); Calc. Creatinine Clearance 100 mL/min (70-130); Calcium 8.6 mg/dL (7.8-10.44); Carbon Dioxide 25 mmol/L (22-29); Cardiac Risk 4.9 (Less than 4.5); Chloride 106 mmol/L (98-107); Cholesterol 138 mg/dl (< 200 Desired); Glucose 189 mg/dL (70-105); HDL Cholesterol 28 mg/dL (>60 Neg Risk); LDL Cholesterol, Calculated 76 mg/dL; Potassium 4.4 mmol/L (3.5-5.1); Sodium 139 mmol/L (136-145); Triglycerides 168 mg/dL (Less than 150)
[2021-06-22] MEDS: Meclizine HCl 25 MG TAB PO SCH ×3 (06:15→20:52)
[2021-06-22] MEDS: HumaLOG 300 UNITS/3 ML VIAL SC PRN ×2 (06:17→16:50)
[2021-06-22] MEDS: metFORMIN 500 MG TAB PO SCH ×2 (10:02→20:53)
[2021-06-22] MEDS: Aspirin 81 mg Enteric Coated Tablet PO SCH (10:02)
[2021-06-22] MEDS: Lisinopril 20 MG TAB PO SCH (10:03)
[2021-06-22] MEDS: Enoxaparin Sodium 40 MG/0.4 ML SYRINGE SC SCH (10:03)
[2021-06-22] MEDS ORDERED: Amlodipine 5 MG TAB PO SCH (10:45)
[2021-06-22] MEDS: Acetaminophen 325 MG TAB PO PRN (13:00)
[2021-06-22] MEDS: hydrALAZINE 20 MG/ML VIAL SLOW IVP PRN (16:50)
[2021-06-22] MEDS: Atorvastatin Calcium 20 MG TAB PO SCH (20:52)
[2021-06-23] MEDS: Meclizine HCl 25 MG TAB PO SCH ×3 (05:25→20:23)
[2021-06-23] MEDS ORDERED: Amlodipine 5 MG TAB PO SCH (09:00)
[2021-06-23] MEDS: Aspirin 81 mg Enteric Coated Tablet PO SCH (09:12)
[2021-06-23] MEDS: Lisinopril 20 MG TAB PO SCH (09:12)
[2021-06-23] MEDS: metFORMIN 500 MG TAB PO SCH ×2 (09:12→20:23)
[2021-06-23] MEDS: Enoxaparin Sodium 40 MG/0.4 ML SYRINGE SC SCH (09:20)
[2021-06-23] MEDS: HumaLOG 300 UNITS/3 ML VIAL SC PRN (11:00)
[2021-06-23] MEDS: hydrALAZINE 20 MG/ML VIAL SLOW IVP PRN (12:45)
[2021-06-23] MEDS: Acetaminophen 325 MG TAB PO PRN (20:23)
[2021-06-23] MEDS: Amlodipine 5 MG TAB PO SCH (20:24)
[2021-06-23] MEDS: Atorvastatin Calcium 20 MG TAB PO SCH (20:24)
[2021-06-23] MEDS ORDERED: Sodium Chloride 0.65% Nasal 44 ML BOT EA NARE PRN (20:34)
[2021-06-24] MEDS: Meclizine HCl 25 MG TAB PO SCH (05:37)
[2021-06-24] MEDS: Aspirin 81 mg Enteric Coated Tablet PO SCH (08:37)
[2021-06-24] MEDS: Lisinopril 20 MG TAB PO SCH (08:37)
[2021-06-24] MEDS: metFORMIN 500 MG TAB PO SCH (08:37)
[2021-06-24] MEDS: Enoxaparin Sodium 40 MG/0.4 ML SYRINGE SC SCH (08:38)
[2021-06-24] MEDS: Amlodipine 5 MG TAB PO SCH (08:38)
[2021-06-24 08:40] VITALS: BP 180/79
[2021-06-24 09:07] VITALS: TEMP 97.7
== END 2021-06-24 11:03 | disposition home or self-care (01) | DRG 149 ==
LOC: ERS 01:03 → 2SW 03:32 → OBSVTOIN 15:37
PROVIDERS: ADMIT Student in an Organized Health Care Education/Training Program; ATTEND Internal Medicine
DX: R42 Dizziness and giddiness (principal); I16.0 Hypertensive urgency; I10 Essential (primary) hypertension; K21.9 Gastro-esophageal reflux disease without esophagitis; H54.8 Legal blindness, as defined in USA; E11.319 Type 2 diabetes mellitus with unspecified diabetic retinopathy without macular edema; E11.65 Type 2 diabetes mellitus with hyperglycemia; Z20.822 Contact with and (suspected) exposure to COVID-19; E78.5 Hyperlipidemia, unspecified; Z79.84 Long term (current) use of oral hypoglycemic drugs; Z79.899 Other long term (current) drug therapy; Z91.19 Patient's noncompliance with other medical treatment and regimen
CPT/HCPCS: 36415; 36416; 70450; 70551; 80048; 80053; 80061; 81001; 82553; 84484; 85025; 93005; 93306; 93880; 96374; J0360; J1650; J2405; U0003; U0005

== ENCOUNTER 2021-10-27 09:51 | Emergency (ER) | payer MEDICAID, SELFPAY ==
[2021-10-27 12:40] LABS: #Eosinphils 0.2 thou/uL (0.0-0.7); #Lymphocytes 1.7 thou/uL (1.20-3.40); #Monocytes 0.6 thou/uL (0.11-0.59); #Neutrophils 9.1 thou/uL (1.40-6.50); %Basophils 0.4 % (0.0-1.0); %Eosinophils 1.5 % (0.0-10.0); %Lymphocytes 14.7 % (21.0-51.0); %Monocytes 5.5 % (0.0-10.0); %Neutrophils 77.9 % (42.0-75.0); Hemoglobin 11.7 g/dL (12.0-16.0); Mean Corpuscular HGB CONC 31.5 g/dL (32.0-36.0); Mean Corpuscular Hemoglobin 29.1 pg (27.0-31.0); Mean Corpuscular Volume 92.6 fL (78.0-98.0); Mean Platelet Volume 11.7 fL (7.4-10.4); Platelet Count 219 thou/uL (130-400); RBC Distribution Width 12.8 % (11.5-14.5); Red Blood Cell (RBC) Count 4.01 mill/uL (4.20-5.40); White Blood Cell (WBC) Count 11.7 thou/uL (4.8-10.8)
[2021-10-27] MEDS ORDERED: Xylocaine 1% w/ Epi 1:100K 10 ML VIAL ONE (12:46)
[2021-10-27 13:03] LABS: ALT (SGPT) 20 U/L (8-55); AST (SGOT) 12 U/L (5-34); Albumin 3.6 g/dL (3.5-5.0); Alkaline Phosphatase 145 U/L (40-110); Anion Gap 14 mmol/L (10-20); BUN (Urea Nitrogen) 14 mg/dL (9.8-20.1); Bilirubin, Total 0.3 mg/dL (0.2-1.2); Calc. Creatinine Clearance 0 mL/min (70-130); Calcium 9.1 mg/dL (7.8-10.44); Carbon Dioxide 24 mmol/L (22-29); Chloride 105 mmol/L (98-107); Globulin 3.4 g/dL (2.4-3.5); Glucose 330 mg/dL (70-105); Potassium 4.5 mmol/L (3.5-5.1); Sodium 138 mmol/L (136-145)
[2021-10-27 13:11] LABS: Bacteria/HPF None Seen HPF (None Seen); Bilirubin Negative (Negative); Blood, Urine 1+ (Negative); Clarity Clear (Clear); Glucose, Urine (Dipstick) >=1000 mg/dL (Negative); Ketone, Urine Negative (Negative); Leukocyte Negative Leu/uL (Negative); Nitrite Negative (Negative); Protein, Urine (Dipstick) 300 mg/dL (Neg-Trace); Specific Gravity, Urine 1.023 (1.002-1.036); Squamous Epithelial 0-3 HPF (0-3); Urobilinogen Normal mg/dL (Less than 2); WBC/HPF 0-3 HPF (0-3)
[2021-10-27] MEDS ORDERED: Bacitracin 1 PK ONE (13:27)
[2021-10-27] MEDS ORDERED: Acetaminophen/Codeine 30-300mg Tablet ONE (15:06)
[2021-10-27] MEDS ORDERED: Boostrix 0.5 ML (Tdap) VIAL ONE (15:17)
== END 2021-10-27 15:40 | disposition home or self-care (01) ==
LOC: ERS 09:51
DX: N76.4 Abscess of vulva (principal); L03.90 Cellulitis, unspecified; I10 Essential (primary) hypertension; E11.9 Type 2 diabetes mellitus without complications; E78.5 Hyperlipidemia, unspecified; K59.09 Other constipation; Z23 Encounter for immunization; Z79.84 Long term (current) use of oral hypoglycemic drugs; Z79.899 Other long term (current) drug therapy
CPT/HCPCS: 10060; 36415; 36416; 80053; 81003; 81015; 85025; 90471; 90715